=== PATIENT | female | born 1975 | race Caucasian/White ===

== ENCOUNTER 2021-02-28 20:44 | Emergency (ER) | payer BC ==
[~2021-02-28] VITALS: Ht 165.1 cm; Wt 102.6 kg
[~2021-02-28 20:44] MED LIST: ARMOUR THYROID30 MG PO; ASPIR-LOW81 MG PO; CELEXA20 MG PO; CIPRO500 MG PO; FAMOTIDINE10 MG PO; FLONASE ALLERG9.9 ML NS; IBUPROFEN800 MG PO; KLONOPIN0.5 MG PO; LOVASTATIN20 MG PO; NORCO 5-325 TA1 EACH PO; PERCOCET 5-3251 EACH PO; VITAMIN D5000 UNIT PO; VITAMIN D50000 UNI1 PO; ZYRTEC10 MG PO
--- OUTSIDE RECORDS SUMMARY | 2021-02-28 20:46 | XMS ---
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 ETameka VISIT COUNT (12 MO.) 1 CARMELO Dick TOTAL 1 NOTE: Visits indicate total known visits. ED/UCC VISIT TRACKING (12 MO.) 02/28/2021 20:45 CAR[facility]ELO [facility]ins [place] TYPE: Emergency COMPLAINT: - RT SIDED FLANK PAIN INPATIENT VISIT TRACKING (12 MO.) No inpatient visits to display in this time frame [email or web address]
== END 2021-02-28 23:39 | disposition home or self-care (01) ==
LOC: ED 20:44
DX: N83.201 Unspecified ovarian cyst, right side (principal); Z88.2 Allergy status to sulfonamides; Z88.8 Allergy status to other drugs, medicaments and biological substances; Z88.1 Allergy status to other antibiotic agents; Z91.048 Other nonmedicinal substance allergy status; Z79.899 Other long term (current) drug therapy
CPT/HCPCS: 74177; 80053; 81001; 84703; 85025; 99284-25; J1885

== ENCOUNTER 2021-06-29 22:51 | Emergency (ER) | payer BC ==
[~2021-06-29] VITALS: Ht 165.1 cm; Wt 99.8 kg
--- OUTSIDE RECORDS SUMMARY | 2021-06-29 22:54 | XMS ---
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 Terrance VISIT COUNT (12 MO.) 2 CARMELO Dick TOTAL 2 NOTE: Visits indicate total known visits. 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
[2021-06-29] MEDS ORDERED: MULTI VITAMIN1 EACH PO (23:12)
--- NOTE | 2021-06-30 18:54 | EKG ---
[facility] [address] [place], [place] [address] Signed Normal sinus rhythm Normal ECG No previous ECGs available Confirmed by BRIAN OSBORN DO ([id number]) on 06/30/2021 6:54:20 PM Electronically Signed By: BRIAN OSBORN DO 06/30/21 1854 PATIENT NAME: MARGUERITE WILKES Electrocardiogram DATE OF : 75 PHYSICIAN: BRIAN OSBORN DO REPORT #: [id number] REPORT IS CONFIDENTIAL AND NOT TO BE RELEASED WITHOUT AUTHORIZATION
== END 2021-06-30 00:39 | disposition home or self-care (01) ==
LOC: ED 22:51
DX: R00.2 Palpitations (principal); Z88.2 Allergy status to sulfonamides; Z91.048 Other nonmedicinal substance allergy status; Z88.1 Allergy status to other antibiotic agents; Z88.8 Allergy status to other drugs, medicaments and biological substances; Z79.899 Other long term (current) drug therapy
CPT/HCPCS: 36415; 80048; 83735; 84484; 85025; 93005; 93010; 96374; 99285-25; J2405

== ENCOUNTER 2021-07-07 12:50 | Day surgery (SDC) | payer BC ==
[~2021-07-07] VITALS: Ht 165.1 cm; Wt 101.0 kg
[~2021-07-07 12:50] MED LIST changes: +MULTI VITAMIN1 EACH PO
--- NOTE | 2021-07-07 12:53 | NUR ---
CONNECTED WITH PT BY PHONE. HAD PRAYER, GAVE ENCOURAGEMENT. HER MOTHER WILL BE WITH HER AND TAKE HER HOME FOLLOWING DC.
--- NOTE | 2021-07-07 14:30 | NUR ---
07/07/21 1430 Tamiko Ojeda 1425- PT ARRIVES TO PACU AWAKE AND TALKING. RESP EVEN AND UNLABORED. OXYGEN SAT HIGH 90'S TO 100% ON 3L VIA OXYMASK. PT REPORTS NO PAIN OR NAUSEA.
--- NOTE | 2021-07-08 12:18 | PATH ---
[facility] [address], [place] [address] Signed SPECIMEN(S): A CECUM BIOPSY SPECIMEN(S): B TERMINAL ILEUM BIOPSY SPECIMEN(S): C DESCENDING/LEFT COLON BIOPSY SPECIMEN(S): D SIGMOID BIOPSY SPECIMEN(S): E RECTAL BIOPSY SPECIMEN SOURCE: A. CECUM BIOPSY B. TERMINAL ILEUM BIOPSY C. DESCENDING/LEFT COLON BIOPSY D. SIGMOID BIOPSY E. RECTAL BIOPSY CLINICAL HISTORY: Colonoscopy. Chronic diarrhea. Hx: Cholecystectomy, gastric sleeve. FINAL PATHOLOGIC DIAGNOSIS: A. Colon, cecum, biopsy: - Colonic mucosa with no histopathologic abnormality. - Negative for active, chronic, or microscopic colitis. - Negative for dysplasia or malignancy. B. Colon, terminal ileum, biopsy: - Ileal mucosa with no histopathologic abnormality. - Negative for active inflammation or granulomas. - Negative for dysplasia or malignancy. C. Colon, descending/left, biopsy: - Colonic mucosa with no histopathologic abnormality. - Negative for active, chronic, or microscopic colitis. - Negative for dysplasia or malignancy. D. Colon, sigmoid, biopsy: - Colonic mucosa with no histopathologic abnormality. - Negative for active, chronic, or microscopic colitis. - Negative for dysplasia or malignancy. E. Rectum, biopsy: - Colorectal mucosa with no histopathologic abnormality. - Negative for active, chronic, or microscopic colitis. - Negative for dysplasia or malignancy. NAL:cml:C2NR MICROSCOPIC EXAMINATION: Histologic sections of all submitted blocks are examined by light microscopy. PATIENT NAME: MARGUERITE WILKES PATHOLOGY DATE OF : 75 REPORT #: [id number] PHYSICIAN: MARK MARTINEZ PCP: GODRY CARDONA REPORT IS CONFIDENTIAL AND NOT TO BE RELEASED WITHOUT AUTHORIZATION [facility] [address], [place] [address] Signed These findings, together with the gross examination, support the pathologic diagnosis. GROSS DESCRIPTION: Five specimens are received in five containers, labeled "KP." A. The specimen, labeled "KP, #1 cecal biopsy," is received in formalin and consists of two goldberg soft tissue fragments that measure 0.3 cm in greatest dimension. The specimen is entirely submitted in cassette (A1). B. The specimen, labeled "KP, #2 terminal ileum," is received in formalin and consists of one goldberg soft tissue fragment that measures 0.3 cm in greatest dimension. The specimen is entirely submitted in cassette (B1). C. The specimen, labeled "KP, #3 left colon," is received in formalin and consists of two goldberg soft tissue fragments that measure 0.3-0.5 cm in greatest dimension. The specimen is entirely submitted in cassette (C1). D. The specimen, labeled "KP, #4 sigmoid colon," is received in formalin and consists of two goldberg soft tissue fragments that measure 0.2-0.3 cm in greatest dimension. The specimen is entirely submitted in cassette (D1). E. The specimen, labeled "KP, #5 rectal," is received in formalin and consists of one goldberg soft tissue fragment that measures 0.4 cm in greatest dimension. The specimen is entirely submitted in cassette (E1). AT (under the direct supervision of a pathologist) The Gross Description was prepared using a voice recognition system. The report was reviewed for accuracy; however, sound-alike word errors, addition and/or deletions may occur. If there is any question about this report, please contact Client Services. PERFORMING LABORATORY: The technical component was performed by [facility], [address] [place] [id number] (Oilseed Meat Presser: Arpita Santoro MD; CLIA# [id number]). Professional interpretation was performed by [facility], [address] [facility] [address] [place], [place] [address] (CLIA# [id number]). Diagnostician: Mercedes German MD Pathologist Electronically Signed 07/08/2021 PATIENT NAME: MARGUERITE WILKES SELINA PATHOLOGY DATE OF : 75 REPORT #: [id number] PHYSICIAN: MARK PATHOLOGY PCP: GORDY CARDONA REPORT IS CONFIDENTIAL AND NOT TO BE RELEASED WITHOUT AUTHORIZATION [facility] [address], [place] [address] Signed Copies: ~ PATIENT NAME: MARGUERITE WILKES SELINA PATHOLOGY DATE OF : 75 REPORT #: [id number] PHYSICIAN: MARK MARTINEZ PCP: GORDY CARDONA REPORT IS CONFIDENTIAL AND NOT TO BE RELEASED WITHOUT AUTHORIZATION
--- NOTE | 2021-07-10 10:56 | OR ---
[facility] [address] [place], [place] [address] Signed DATE OF OPERATION: 07/07/2021 SURGEON: Jose Flores MD PREOPERATIVE DIAGNOSES: 1. Persistent diarrhea. 2. Distant history of sleeve gastrectomy in 2018. 3. History of cholecystectomy greater than 10 years ago. POSTOPERATIVE DIAGNOSIS: Normal-appearing colon and ilium except for diminutive polyp of the sigmoid. PROCEDURE: 1. Total colonoscopy to cecum with intubation of ileum and biopsies of ileum, cecum, left colon and rectum. 2. Cold morcellation excision of diminutive polyp of sigmoid. ANESTHESIA: Intravenous sedation; fentanyl 200 mcg and Versed 10 mg. INDICATION: This 45-year-old white woman is a patient of JAIRO Leon. She is the daughter of also patients of [facility]. The patient has had complaints of persistent diarrhea. A thorough evaluation as to infectious causes was undertaken by JAIRO Leon, showing no sign of infectious etiology to this. She is admitted at this time to undergo colonoscopy. She understands the risks of bleeding, infection, and perforation. FINDINGS: The prep was good. Complete colonoscopy was undertaken to the cecum and intubation and visualization of the terminal ilium undertaken as well. Biopsies were taken of the ileum, cecum, left colon, and rectum to rule out occult colitis but there was no evidence of colitis proper. She had no evidence of cancer. There was a diminutive polyp of the sigmoid, which was excised with cold morcellation technique. PROCEDURE: The patient was brought to the endoscopy suite and placed in the lateral decubitus position, given intravenous sedation to the point of slurred speech and nystagmus. Full cardiopulmonary monitoring was maintained. Additional sedation was given as needed throughout the procedure. Digital rectal examination was normal. Electronically Signed By: JOSE FLORES MD 07/10/21 1056 PATIENT NAME: MARGUERITE WILKES OPERATIVE REPORT DATE OF : 75 REPORT #: [id number] PHYSICIAN: JOSE FLORES MD PCP: GORDY CARDONA REPORT IS CONFIDENTIAL AND NOT TO BE RELEASED WITHOUT AUTHORIZATION [facility] [address] [place], [place] [address] Signed An Olympus video colonoscope was passed in the rectum and manipulated throughout the colon ultimately passing the scope to the area of the proximal right colon. Abdominal wall stabilization was required as well as other maneuvers to ultimately intubate the cecum itself, but it was accomplished without question. Biopsies were taken of the cecum, though it appeared normal. With various manipulations, the ileum could be identified more fully and visualized and passed only a short distance allowing for accurate biopsies of the terminal ileum. The ileum appeared normal and without signs of inflammation. The scope was withdrawn from that point and examination throughout showed no sign of abnormalities. Biopsies were taken in the left colon and the rectum to assess for microscopic colitis. Retroflexed view was normal. There was noted to be a diminutive polyp of the sigmoid which was affirmed by narrow band imaging and this small lesion was excised with cold morcellation technique. The scope was removed. The patient was taken to recovery room in good condition. CONCLUDING DIAGNOSES: 1. No clear abnormality to account for diarrhea. 2. Diminutive polyp of sigmoid. PLAN: Questran 4 g p.o. q.i.d. tapering to the lowest effective dose will be recommended. We did discuss that in the office, though I do not believe she initiated this approach. She has had cholecystectomy in the past and this may assist in symptom control pending pathology reports. She will return to see me in approximately 4 weeks. MD SAEID Mora/NATEL /[id number] cc: JAIRO Leon Electronically Signed By: JOSE FLORES MD 07/10/21 1056 PATIENT NAME: MARGUERITE WILKES OPERATIVE REPORT DATE OF : 75 REPORT #: [id number] PHYSICIAN: JOSE FLORES MD PCP: GORDY CARDONA REPORT IS CONFIDENTIAL AND NOT TO BE RELEASED WITHOUT AUTHORIZATION [facility] [address] [place] [address] Signed Copies: GORDY CARDONA ~ Electronically Signed By: JOSE FLORES MD 07/10/21 1056 PATIENT NAME: MARGUERITE WILKES OPERATIVE REPORT DATE OF : 75 REPORT #: [id number] PHYSICIAN: JOSE FLORES MD PCP: GORDY CARDONA REPORT IS CONFIDENTIAL AND NOT TO BE RELEASED WITHOUT AUTHORIZATION
== END 2021-07-07 15:09 | disposition home or self-care (01) ==
LOC: OPS 12:50 → DS 12:53 → OPS 14:00
PROVIDERS: ATTEND Surgery
PROC: 0DBN8ZX Excision of Sigmoid Colon, Via Natural or Artificial Opening Endoscopic, Diagnostic (ICD-10-PCS; principal; 2021-07-07 14:00)
DX: K63.5 Polyp of colon (principal); Z90.49 Acquired absence of other specified parts of digestive tract; Z90.3 Acquired absence of stomach [part of]; Z88.2 Allergy status to sulfonamides; Z88.8 Allergy status to other drugs, medicaments and biological substances
CPT/HCPCS: J2250; J3010; J7121

== ENCOUNTER 2021-09-25 09:38 | Emergency (ER) | payer BC ==
[~2021-09-25] VITALS: Ht 165.1 cm; Wt 105.2 kg
--- OUTSIDE RECORDS SUMMARY | 2021-09-25 09:40 | XMS ---
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 ETameka VISIT COUNT (12 MO.) 3 CARMELO Dick TOTAL 3 NOTE: Visits indicate total known visits. ED/UCC VISIT TRACKING (12 MO.) 09/25/2021 09:38 CAR[facility] [place] TYPE: Emergency COMPLAINT: - L FACE NUMBNESS,EAR PROBLEM 06/29/2021 22:51 CARMELO [facility]ins [place] TYPE: Emergency COMPLAINT: - CHEST PAIN DIAGNOSES: - Other [place] [facility] (current[facility] drug therapy - Allergy status to other antibiotic agents - Chest pain, unspecified - Other nonmedicinal substance allergy status - Palpitations - Allergy status to sulfonamides - Allergy status to other drugs, medicaments and biological substances 02/28/2021 20:45 CARMELO [facility]ins [place] TYPE: Emergency COMPLAINT: - RT SIDED FLANK PAIN DIAGNOSES: - Allergy status to sulfonamides - Right lower quadrant pain - Allergy status to other antibiotic agents - Other nonmedicinal substance allergy status - Allergy status to other drugs, medicaments and biological substances - Other [place] [facility] (current) drug therapy - Unspecified ovarian cyst, right side INPATIENT VISIT TRACKING (12 MO.) No inpatient visits to display in this time frame [email or web address]
== END 2021-09-25 10:22 | disposition home or self-care (01) ==
LOC: ED 09:38
DX: H69.92 Unspecified Eustachian tube disorder, left ear (principal); Z88.2 Allergy status to sulfonamides; Z88.8 Allergy status to other drugs, medicaments and biological substances; Z91.048 Other nonmedicinal substance allergy status; Z88.1 Allergy status to other antibiotic agents; Z79.899 Other long term (current) drug therapy
CPT/HCPCS: 99282

== ENCOUNTER 2022-06-21 15:29 | Emergency (ER) | payer BC ==
[~2022-06-21] VITALS: Ht 165.1 cm; Wt 112.1 kg
[~2022-06-21 15:29] MED LIST changes: +CARAFATE1 GM PO
--- OUTSIDE RECORDS SUMMARY | 2022-06-21 15:31 | XMS ---
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 Terrance VISIT COUNT (12 MO.) 4 [facility] TOTAL 4 NOTE: Visits indicate total known visits. 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 [place] TYPE: Emergency COMPLAINT: - CHEST PAIN DIAGNOSES: - Palpitations - Chest pain, unspecified - Other exterminator helper (current) drug therapy - Allergy status to sulfonamides - Other nonmedicinal substance allergy status - Allergy status to other antibiotic agents - Allergy status to other drugs, medicaments and biological substances INPATIENT VISIT TRACKING (12 MO.) No inpatient visits to display in this time frame [email or web address]
--- NOTE | 2022-06-22 20:44 | EKG ---
[facility] [address] [place] [address] Signed Normal sinus rhythm Normal ECG When compared with ECG of 25-MAY-2022 16:58, No significant change was found V5 artifact Confirmed by Saqib Obando MD () on 06/22/2022 8:44:30 PM Electronically Signed By: SAQIB OBANDO MD 06/22/222043 PATIENT NAME: MARGUERITE WILKES Electrocardiogram DATE OF : 75 PHYSICIAN: SAQIB OBANDO MD REPORT #: [id number] REPORT IS CONFIDENTIAL AND NOT TO BE RELEASED WITHOUT AUTHORIZATION
== END 2022-06-21 18:40 | disposition home or self-care (01) ==
LOC: ED 15:29
DX: K27.9 Peptic ulcer, site unspecified, unspecified as acute or chronic, without hemorrhage or perforation (principal); I48.91 Unspecified atrial fibrillation; Z88.2 Allergy status to sulfonamides; Z88.8 Allergy status to other drugs, medicaments and biological substances; Z91.048 Other nonmedicinal substance allergy status; Z88.1 Allergy status to other antibiotic agents; Z79.899 Other long term (current) drug therapy
CPT/HCPCS: 36415; 72070; 74022; 80053; 83690; 84484; 85025; 93005; 93010; 96374; 96375; 99285-25; J1170; J2405; J7030

== ENCOUNTER 2022-08-29 16:36 | Emergency (ER) | payer BC ==
[~2022-08-29] VITALS: Ht 165.1 cm; Wt 110.8 kg
[~2022-08-29 16:36] MED LIST changes: +SINGULAIR10 MG PO
--- OUTSIDE RECORDS SUMMARY | 2022-08-29 16:38 | XMS ---
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 ETameka VISIT COUNT (12 MO.) 4 CARMELO Dick TOTAL 4 NOTE: Visits indicate total known visits. ED/UCC VISIT TRACKING (12 MO.) 08/29/2022 16:36 [facility] [place] TYPE: Emergency COMPLAINT: - HEAD PAIN 06/21/2022 15:29 CARMELO [facility]ins [place] TYPE: Emergency COMPLAINT: - CHEST PAIN DIAGNOSES: - Other half-way (current) drug therapy - Unspecified atrial fibrillation - Peptic ulcer, site unspecified, unspecified as acute or chronic, without hemorrhage or perforation - Other nonmedicinal substance allergy status - Allergy status to other antibiotic agents - Allergy status to sulfonamides - Allergy status to other drugs, medicaments and biological substances - Epigastric pain 05/25/2022 16:06 CARMELO [facility]ins [place] TYPE: Emergency COMPLAINT: - ABDOMINAL PAIN DIAGNOSES: - Right upper quadrant pain - Other nonmedicinal substance allergy status - Allergy status to other antibiotic agents - Palpitations - Other half-way (current) drug therapy - Allergy status to other drugs, medicaments and biological substances - Allergy status to sulfonamides 09/25/2021 09:[address] 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
[2022-08-29] MEDS ORDERED: IMITREX50 MG PO (20:48)
[2022-08-29 21:44] VITALS: BP 99/63
--- NOTE | 2022-08-30 16:26 | EKG ---
[facility] [address] [facility] [place], [place] [address] Signed Normal sinus rhythm Normal ECG When compared with ECG of 21-JUN-2022 15:36, No significant change was found Confirmed by ANNELIESE PARKER MD ([id number]) on 08/30/2022 4:26:36 PM Electronically Signed By: ANNELIESE PARKER MD 08/30/22 1626 PATIENT NAME: MARGUERITE WILKES Electrocardiogram DATE OF : 75 PHYSICIAN: ANNELIESE PARKER MD REPORT #: [id number] REPORT IS CONFIDENTIAL AND NOT TO BE RELEASED WITHOUT AUTHORIZATION
== END 2022-08-29 21:45 | disposition home or self-care (01) ==
LOC: ED 16:36
DX: R51.9 Headache, unspecified (principal); R20.0 Anesthesia of skin; Z88.1 Allergy status to other antibiotic agents; Z88.2 Allergy status to sulfonamides; Z88.8 Allergy status to other drugs, medicaments and biological substances; Z91.048 Other nonmedicinal substance allergy status; Z79.899 Other long term (current) drug therapy
CPT/HCPCS: 36415; 70450; 70496; 70498; 71045; 80053; 84484; 85025; 85610; 85730; 93005; 93010; 99284-25; A9270; J1790; J1885; J2405; J3030; J7040; Q9967

== ENCOUNTER 2023-04-16 05:47 | Day surgery (SDC) | payer BC ==
[2023-04-09 10:28] VITALS: BP 111/87
[~2023-04-16] VITALS: Ht 165.1 cm; Wt 106.8 kg
--- NOTE | ~2023-04-16 | OR ---
[place] [id number] [place], [place] [address] Draft DATE OF OPERATION: 04/16/2023 SURGEON: Maria Esther Varghese MD PREOPERATIVE DIAGNOSES: 1. Mixed urinary incontinence. 2. Overactive bladder. 3. Interstitial cystitis. POSTOPERATIVE DIAGNOSES: 1. Mixed urinary incontinence. 2. Overactive bladder. 3. Interstitial cystitis. NAMES OF PROCEDURES: 1. Diagnostic cystoscopy. 2. Urethral dilation, from 10-Burkinan to 24-Burkinan. 3. Botox bladder injection, 100 units. ANESTHESIA: MAC. ESTIMATED BLOOD LOSS: None. COMPLICATIONS: None. SPECIMENS: None. DRAINS: None. INDICATIONS FOR PROCEDURE: Ms. Boogie is a very pleasant 47-year-old female with a history of long-standing interstitial cystourethritis, who recently presented to me for evaluation and treatment of mixed urinary incontinence symptoms. After undergoing diagnostic cystoscopy, I discussed the various treatment options with her for her urinary incontinence. She does have a stress incontinence component. However, I recommended against placement of a PATIENT NAME: MARGUERITE BOOGIE OPERATIVE REPORT DATE OF : 75 REPORT #: [id number] PHYSICIAN: MARIA ESTHER VARGHESE MD PCP: GORDY CARDONA REPORT IS CONFIDENTIAL AND NOT TO BE RELEASED WITHOUT AUTHORIZATION [address] [address] Draft midurethral sling as this would likely make her cystitis and OAB symptoms worse. She has elected to give Botox injection a try. If the Botox is effective, she will consider also trying Bulkamid injection for her JEREMY symptoms. After discussion of the risks and benefits of botulinum toxin injections today including the risk of recurrent UTI and urinary retention, she has agreed to proceed. OPERATIVE FINDINGS: 1. The patient's urethra was dilated from 10-Burkinan to 24-Burkinan using straight sounds in order to make passage of the rigid cystoscope easier given her history of cystourethritis. 2. Diagnostic cystoscopy reveals no evidence of any suspicious masses, lesions, or stones. Bilateral ureteral orifices are in their normal anatomic location. She does have superficial bladder wall erythema and vascular dilation of the blood vessels within the bladder wall that is consistent with a cystitis picture. 3. 100 units of botulinum toxin was injected into the patient's bladder today via a total of five injections. The number of injections was minimized to prevent the patient's discomfort today. The injections themselves were performed without difficulty. DESCRIPTION OF PROCEDURE: After informed consent was obtained, the patient was taken back to the operating room. She was transferred from the [facility] to the operating room table, where MAC anesthesia was induced. She was placed in the dorsal lithotomy position and her genitalia were prepped and draped in a standard sterile fashion. Her urethra was dilated gently using straight sounds from 10-Burkinan to 24-Burkinan. I then passed a rigid cystoscope into the patient's bladder via a 22.5-Burkinan sheath. Diagnostic cystoscopy was performed. Please see the above findings. I then advanced the [employer] needle through the scope and the needle had already been primed with the botulinum toxin medication. I then placed a total of five injections throughout the bladder wall, avoiding the dome and trigone area of the bladder. All 100 units of the botulinum toxin was injected into the bladder wall today. Once the injections were complete, I withdrew the needle from the patient's bladder. I drained the patient's bladder and removed the cystoscope. Of note, the injections were made using a 3 mm length needle. The procedure was then terminated. The patient tolerated the procedure well without any complication. She will now be transferred to the postanesthesia care unit in stable condition. DISPOSITION: I discussed the details of today's procedure with the patient's mother and answered all of her questions. She will be sent home today when she awakes from her anesthesia. She must void on her own prior to discharge. She was given Cipro 500 mg one tablet p.o. b.i.d. for a total of five days along with Pyridium as needed for dysuria. The patient was also given a small amount of oxycodone 5 mg one tablet p.o. q.6 hours p.r.n. pain, PATIENT NAME: MARGUERITE BOOGIE OPERATIVE REPORT DATE OF : 75 REPORT #: [id number] PHYSICIAN: MARIA ESTHER VARGHESE MD PCP: GORDY CARDONA REPORT IS CONFIDENTIAL AND NOT TO BE RELEASED WITHOUT AUTHORIZATION [address] [address] Draft dispense #10 to be used in case her postoperative pain is severe, given her history of interstitial cystitis. She will be scheduled to return to clinic in 2 to 3 weeks for a nurse visit to have her urine and postvoid residual checked. MD FORTINO Lawson/RAJEEV /[id number] Copies: ~ PATIENT NAME: MARGUERITE BOOGIE OPERATIVE REPORT DATE OF : 75 REPORT #: [id number] PHYSICIAN: MARIA ESTHER VARGHESE MD PCP: GORDY CARDONA REPORT IS CONFIDENTIAL AND NOT TO BE RELEASED WITHOUT AUTHORIZATION
[~2023-04-16 05:47] MED LIST changes: +ACETAZOLAMIDE125 MG PO; +IMITREX50 MG PO
[2023-04-16 06:05] VITALS: BP 120/83
--- NOTE | 2023-04-16 08:26 | NUR ---
04/16/23 0826 Loly Rodriguez 0811- PT ARRIVES TO PACU, SEMI KATZ POSITION. REACTIVE TO STIMULUS BUT NOT ANSWERING QUESTIONS AT THIS TIME. LR INFUSING TO RH IV, O2 AT 6L PER MASK. ALL MONITORS IN PLACE. ABD SOFT, NON DISTENDED. WILL CONTINUE TO MONITOR. 0818- PT MOVED TO ROOM AIR AT THIS TIME, RESPONDS TO VERBAL STIMULI. DENIES PAIN OR NAUSEA AT THIS TIME. PT KEEPS EYES CLOSED. 0825- PT REPORTS FEELING LIKE SHE NEEDS TO URINATE. DOESN'T WANT A BED SILVA AT THIS TIME. WILL NOTIFY IF SHE CHANGES HER MIND. WARM BLANKETS PROVIDED. NO SIGNS OF DISTRESS.
[2023-04-16 08:35] VITALS: BP 107/73
--- NOTE | 2023-04-16 09:01 | NUR ---
0835: PT ARRIVES TO UNIT VIA STRETCHER. AWAKE AND ALERT ON ARRIVAL. DROWSY WHEN NOT STIMULATED. VSS, RESP EVEN AND UNLABORED. PT DENIES PAIN AND NAUSEA. REPORTS URGE TO VOID. DANGLES AT THE BEDSIDE, IDANIA WELL. AMBULATES TO BR WITH STANDBY FROM RN. STEADY GAIT. FIRST SUCCESSFUL POSTOP VOID, 150MLS. BACK TO STRETCHER. IV CONVERTED TO SL AND SCDS IN PLACE. ICE WATER AND CRACKERS PROVIDED. PT COMFORTABLE WITHOUT NEEDS. MOTHER ATTENTIVE AT THE BEDSIDE. CALL LIGHT WITHIN REACH
[2023-04-16 09:35] VITALS: BP 100/73
--- NOTE | 2023-04-16 09:45 | NUR ---
0935: PT AWAKE AND ALERT IN STRETCHER. REPORTS DESIRE TO DC. VSS, RESP EVEN AND UNLABORED. DENIES PAIN AND NAUSEA. IDANIA PO INTAKE. SL REMOVED WITH CATH TIP INTACT AND PRESSURE APPLIED TO SITE, WNL. PT TO DRESS INDEPENDENTLY AND PREPARE FOR DC. NO NEEDS, CALL LIGHT WITHIN REACH
--- NOTE | 2023-04-16 10:28 | NUR ---
0950: PT DRESSED AND READY FOR DC. INSTRUCTIONS PROVIDED ORDERED AND PT VOICES UNDERSTANDING AND DENIES QUESTIONS AND CONCERNS AT THIS TIME. WHEELED OFF OF UNIT BY THIS RN. TRANSFERS INTO VEHICLE INDEPENDENTLY AND APPROPRIATELY. NO PHYSICAL S/S OF DISTRESS AT THIS TIME
== END 2023-04-16 09:50 | disposition home or self-care (01) ==
LOC: DS 05:47 → OPS 05:47 → DS 07:30 → OPS 07:30 → DS 08:00 → OPS 09:50
PROVIDERS: ATTEND Urology
PROC: 3E0K8GC Introduction of Other Therapeutic Substance into Genitourinary Tract, Via Natural or Artificial Opening Endoscopic (ICD-10-PCS; principal; 2023-04-16 07:30)
DX: N30.20 Other chronic cystitis without hematuria (principal); N39.46 Mixed incontinence; N32.81 Overactive bladder; F32.A Depression, unspecified; E03.9 Hypothyroidism, unspecified; E78.5 Hyperlipidemia, unspecified; I48.0 Paroxysmal atrial fibrillation
CPT/HCPCS: J0131; J0585; J0690; J1100; J2001; J2250; J2405; J2704; J3010; J7121

== ENCOUNTER 2024-04-29 08:30 | Day surgery (SDC) | payer BC ==
[2024-04-28 09:52] VITALS: BP 114/79
[~2024-04-29] VITALS: Ht 165.1 cm; Wt 106.8 kg
--- NOTE | ~2024-04-29 | OR ---
[facility] [address] [place], [place] [address] Draft DATE OF OPERATION: 04/29/2024 SURGEON: Jose Flores MD PREOPERATIVE DIAGNOSIS: Family history of colon cancer (mother age 70). POSTOPERATIVE DIAGNOSIS: Small polyps x2, probably hyperplastic. PROCEDURE: Total colonoscopy to cecum with cold morcellation polypectomy x2. ANESTHESIA: Intravenous sedation; propofol, Marcos Driscoll CRNA. INDICATIONS: 48-year-old white woman is a patient of JAIRO Leon. She underwent colonoscopy by me nearly three years ago in June 2021. Findings at that time showed diminutive polyp of the sigmoid. The patient's mother was recently diagnosed with colon cancer at age 70. On that basis, she has concerns and wished to have colon evaluation once again. She does have diarrhea alternating with constipation. She has had no blood per rectum. Constipation has been well managed by use of milk of magnesia. She also takes a probiotic. She has other medical issues including history of gastric sleeve resection, heart ablation for atrial fibrillation, cholecystectomy, hysterectomy and history of surgery for endometriosis. She is now to undergo colonoscopy on the basis of her family history. She understands the risk of bleeding, infection, and perforation. FINDINGS: The prep was excellent. Complete colonoscopy was undertaken to the cecum without question. Full intubation of the cecum was noted. She had two small polyps, one in the sigmoid and one in the rectosigmoid. Both were probably hyperplastic based on their appearance. There were no other findings of note. DESCRIPTION OF PROCEDURE: The patient was brought to the surgical endoscopy suite, given intravenous sedation to the point of slurred speech and nystagmus with full cardiopulmonary monitoring using a propofol technique by the personal companion. A digital rectal examination was normal. An PATIENT NAME: MARGUERITE WILKES OPERATIVE REPORT DATE OF : 75 REPORT #: [id number] PHYSICIAN: JOSE FLORES MD PCP: GORDY CARDONA REPORT IS CONFIDENTIAL AND NOT TO BE RELEASED WITHOUT AUTHORIZATION [facility] [address] [place], [place] [address] Draft Olympus video colonoscope was passed in the rectum and manipulated throughout the colon ultimately intubating the cecum itself. The ileocecal valve and appendiceal orifice were well identified. The scope was then withdrawn and examination throughout undertaken showing no sign of abnormality until the sigmoid where a small whitish probably hyperplastic polyp was noted. This was excised with cold morcellation technique completely. Further withdrawal showed another similar such lesion at the rectosigmoid that was also excised with cold morcellation technique. Retroflexed view of the rectum was normal. Scope was straightened, withdrawn and removed. The patient was taken to the recovery room in good condition. CONCLUDING DIAGNOSIS: Polyps x2, probably hyperplastic. PLAN: Recommend repeat colonoscopy in 5 years based on her personal history and newly revealed family history of colon cancer in her mother. MD SAEID Mora/RAJEEV /[id number] cc: JAIRO Leon Copies: GORDY CARDONA ~ PATIENT NAME: CHUNGMARGUERITE SELINA OPERATIVE REPORT DATE OF : 75 REPORT #: [id number] PHYSICIAN: JOSE FLORES MD PCP: GORDY CARDONA REPORT IS CONFIDENTIAL AND NOT TO BE RELEASED WITHOUT AUTHORIZATION
[~2024-04-29 08:30] MED LIST changes: +ARMOUR THYROID90 MG PO; +IBLOOD GLUCOSE TEST STRIP 1 EA TEST VI PRN; +LACTATED RINGER'S 1,000 ML IV SCH; +LIDOCAINE HCL 1% 5 ML SDV INJ ONE; +NP THYROID15 MG PO; +NP THYROID60 MG PO; +PRILOSEC OTC20 MG PO; +TOPIRAMATE100 MG PO; +VITAMIN D21250 MCG PO
[2024-04-29 09:57] VITALS: BP 110/68
[2024-04-29] MEDS ORDERED: LIDOCAINE HCL 2% 5 ML SDV ONE (10:32)
[2024-04-29] MEDS ORDERED: propofoL 200 MG/20 ML VIAL ONE (10:32)
[2024-04-29 12:03] VITALS: BP 109/70
--- NOTE | 2024-04-29 12:29 | NUR ---
04/29/24 1229 Brittanie Sandra 1141 PT ARRIVED IN PACU SLEEPY. ABD SOFT AND PASSING FLATUS. 1150 DR AT BEDSIDE. ALL QUESTIONS ANSWERED. 1200 UP TO BR. VOIDED. BACK AT BEDSIDE GETTTING DRESSED. 1215 DC INSTRUCTIONS GIVEN. LEFT VIA W/C.
--- NOTE | 2024-05-01 11:20 | PATH ---
[facility] [address] [facility] [place], [place] [address] Signed SPECIMEN(S): A SIGMOID POLYP SPECIMEN(S): B SIGMOID POLYP #2 SPECIMEN SOURCE: A. SIGMOID POLYP B. SIGMOID POLYP #2 CLINICAL HISTORY: history of polyps, family history of colon CA. Post: Polyp x 2 FINAL PATHOLOGIC DIAGNOSIS: A. Colon, sigmoid, polypectomy: - Hyperplastic polyp B. Colon, sigmoid, polypectomy #2: - Hyperplastic polyp BRP MICROSCOPIC EXAMINATION: Histologic sections of all submitted blocks are examined by light microscopy. These findings, together with the gross examination, support the pathologic diagnosis. GROSS DESCRIPTION: A. The specimen, labeled and designated "Keagan, Willy, sigmoid polyp," is received in formalin and consists of five goldberg soft tissue fragments, ranging from 0.1-0.3 cm. Entirely submitted in (A1). B. The specimen, labeled and designated "Keagan, Willy, sigmoid polyp #2," is received in formalin and consists of three goldberg soft tissue fragments, ranging from 0.2-0.3 cm. Entirely submitted in (B1). AB (under the direct supervision of a pathologist) The Gross Description was prepared using a voice recognition system. The report was reviewed for accuracy; however, sound-alike word errors, addition and/or deletions may occur. If there is any question about this report, please contact Client Services. ADDITIONAL NOTES: Immunohistochemical and/or in situ hybridization studies if performed in this case included appropriate positive controls that reacted as expected. This test was developed and its performance characteristics determined by [facility]. It has not been cleared or approved by the U.S. Food and Drug Administration. The FDA has determined that PATIENT NAME: MARGUERITE WILKES PATHOLOGY DATE OF : 75 REPORT #: [id number] PHYSICIAN: MARK PATHOLOGY PCP: GORDY CARDONA REPORT IS CONFIDENTIAL AND NOT TO BE RELEASED WITHOUT AUTHORIZATION [facility] [address] [place], [place] [address] Signed such clearance or approval is not necessary. This test is used for clinical purposes. It should not be regarded as investigational or for research. [facility] is certified under the Clinical Laboratory Improvement Amendments of 1988 (CLIA) as qualified to perform high complexity clinical laboratory testing. PERFORMING LABORATORY: Technical component was performed by [facility], [address] [place] [id number] (CLIA# [id number]). [facility] - [facility], [address] [address] (CLIA# [id number]). Diagnostician: Xavier Lira MD Pathologist Electronically Signed 05/01/2024 Copies: ~ PATIENT NAME: MARGUERITE WILKES PATHOLOGY DATE OF : 75 REPORT #: [id number] PHYSICIAN: MARK PATHOLOGY PCP: GORDY CARDONA REPORT IS CONFIDENTIAL AND NOT TO BE RELEASED WITHOUT AUTHORIZATION
== END 2024-04-29 12:15 | disposition home or self-care (01) ==
LOC: DS 08:30
PROVIDERS: ATTEND Surgery
PROC: 0DBN8ZZ Excision of Sigmoid Colon, Via Natural or Artificial Opening Endoscopic (ICD-10-PCS; principal; 2024-04-29 10:40)
DX: R19.4 Change in bowel habit (principal); K63.5 Polyp of colon; I48.91 Unspecified atrial fibrillation; E03.9 Hypothyroidism, unspecified; K21.9 Gastro-esophageal reflux disease without esophagitis; Z86.0100 Personal history of colon polyps, unspecified; Z79.890 Hormone replacement therapy; Z79.899 Other long term (current) drug therapy; Z88.2 Allergy status to sulfonamides; Z88.1 Allergy status to other antibiotic agents; Z88.8 Allergy status to other drugs, medicaments and biological substances; Z98.84 Bariatric surgery status; Z90.49 Acquired absence of other specified parts of digestive tract; Z90.710 Acquired absence of both cervix and uterus; Z80.0 Family history of malignant neoplasm of digestive organs
CPT/HCPCS: 00811; J2003; J2704; J7121

== ENCOUNTER 2024-05-05 05:54 | Day surgery (SDC) | payer BC ==
[2024-04-28 10:11] VITALS: BP 114/79
[~2024-05-05] VITALS: Ht 165.1 cm; Wt 106.8 kg
[~2024-05-05 05:54] MED LIST changes: -IBLOOD GLUCOSE TEST STRIP 1 EA TEST VI PRN; -LIDOCAINE HCL 1% 5 ML SDV INJ ONE
[2024-05-05 06:08] VITALS: BP 1115/77
[2024-05-05] MEDS ORDERED: LIDOCAINE HCL 1% 5 ML SDV INJ ONE (07:00)
[2024-05-05] MEDS ORDERED: IBLOOD GLUCOSE TEST STRIP 1 EA TEST VI PRN ×2 (07:00→08:15)
[2024-05-05] MEDS ORDERED: CEFAZOLIN SODIUM 2 GM/20 ML SYR IV SCH (07:00)
[2024-05-05] MEDS ORDERED: BOTULINUM TOXIN TYPE A 100 UNITS VIAL IM ONE (07:15)
[2024-05-05] MEDS ORDERED: fentaNYL citrate 100 MCG/2 ML VIAL ONE (07:24)
[2024-05-05] MEDS ORDERED: LIDOCAINE HCL 2% 5 ML SDV ONE (07:24)
[2024-05-05] MEDS ORDERED: KETOROLAC TROMETHAMINE 30 MG/ML VIAL ONE (07:24)
[2024-05-05] MEDS ORDERED: propofoL 200 MG/20 ML VIAL ONE ×3 (07:24→08:26)
[2024-05-05] MEDS ORDERED: DEXAMETHASONE SOD PHOS 4 MG/ML VIAL ONE (07:24)
[2024-05-05] MEDS ORDERED: ACETAMINOPHEN 1,000 MG/100 ML VIAL ONE (07:24)
[2024-05-05] MEDS ORDERED: ondansetron HCL 4 MG/2 ML VIAL ONE (07:24)
--- NOTE | 2024-05-05 07:43 | NUR ---
VISITED DURING SPIRITUAL CARE ROUNDS. PT SUPPORTED BY FAMILY MEMBER IN ROOM. NO IMMEDIATE NEEDS. ACCOUNTING SYSTEMS MANAGER PROVIDED SUPPORTIVE PRESENCE, HOSPITALITY, PRAYER, FACILIATED INTERACTION WITH THERAPY ANIMAL. PT AND FAMILY EXPRESSED GRATITUDE.
[2024-05-05] MEDS ORDERED: KETOROLAC TROMETHAMINE 15 MG/ML VIAL IV PRN (07:45)
[2024-05-05] MEDS ORDERED: HYDROmorphone HCL 1 MG/ML SYR IV PRN (07:45)
[2024-05-05] MEDS ORDERED: TRAMADOL HCL 50 MG TAB PO PRN (07:45)
[2024-05-05] MEDS ORDERED: ondansetron HCL 4 MG/2 ML VIAL IV PRN ×2 (07:45→08:15)
[2024-05-05] MEDS ORDERED: OXYCODONE/APAP 5/325 TAB PO PRN (07:45)
[2024-05-05] MEDS ORDERED: fentaNYL citrate 50 MCG/ML SDV IV PRN (08:15)
[2024-05-05] MEDS ORDERED: droPERidol 5 MG/2 ML VIAL IV PRN (08:15)
[2024-05-05] MEDS ORDERED: NALOXONE HCL 0.4 MG SYR IV PRN (08:15)
[2024-05-05] MEDS ORDERED: PROCHLORPERAZINE EDISYLATE 10 MG/2 ML VIAL IV PRN (08:15)
[2024-05-05 09:57] VITALS: BP 114/77
--- NOTE | 2024-05-05 10:00 | NUR ---
PATIENT RETURNS TO TREATMENT ROOM FROM PACU. PATIENT RETURNS DUE TO NOT BEING ABLE TO URINATE. REPORT TAKEN FROM HARPAL WATSON. SHE STATES THAT SHE FEELS THE URGE, BUT UNABLE TO START A STREAM. SHE DENIES ANY NAUSEA. REPORTS SOME CRAMPING TO HER ABDOMEN BUT OTHERWISE FEELS WELL, JUST DROWSY. VITAL SIGNS OBTAINED AND WDL. I ASKED PATIENT IF SHE WOULD LIKE TO TRY AND URINATE AGAIN AND SHE SAID SHE WOULD. PATIENT AMBULATED TO RESTROOM WITH ASSISTANCE.
--- NOTE | 2024-05-05 10:01 | NUR ---
[facility]IV[facility] IN PACU SLEEPY WITH NO C/O'S. 15 RESTING. REU. 929 C/O URGE TO VOID. UP TO BATHROOM WITH ONE PERSON ASSIST. 944 UNABLE TO VOID. BACK IN BED WITH WARM BLANKETS. 954 TO DS UNTIL DC CRITERIA MET. REPORT GIVEN TO RN. FAMILY AT BEDSIDE.
--- NOTE | 2024-05-05 10:05 | NUR ---
PATIENT ABLE TO URINATE APPROXIMATELY 125ML. SHE WAS ALLOWED TO GET DRESSED AT THIS TIME.
--- NOTE | 2024-05-05 10:15 | NUR ---
DISCHARGE INSTRUCTIONS REVIEWED IN DETAIL WITH PATIENT AND HER AUNT PRESENT. ALL QUESTIONS ANSWERED. PATIENT DICHARGED VIA WHEELCHAIR WHERE HER AUNT JOB IS TO TAKE HER HOME.
--- NOTE | 2024-05-07 14:03 | EKG ---
[facility] [address] [facility] [place] [address] Signed Normal sinus rhythm Cannot rule out Anterior infarct , age undetermined Abnormal ECG When compared with ECG of 08-MAY-2023 16:47, No significant change was found Confirmed by Mejia Jeter MD ([id number]) on 05/07/2024 2:03:23 PM Electronically Signed By: MEJIA JETER DO 05/07/24 140 PATIENT NAME: MARGUERITE WILKES Electrocardiogram DATE OF : 75 PHYSICIAN: MEJIA JETER DO REPORT #: [id number] REPORT IS CONFIDENTIAL AND NOT TO BE RELEASED WITHOUT AUTHORIZATION
== END 2024-05-05 10:20 | disposition home or self-care (01) ==
LOC: DS 05:54
PROVIDERS: ATTEND Urology
PROC: 0T7D8ZZ Dilation of Urethra, Via Natural or Artificial Opening Endoscopic (ICD-10-PCS; principal; 2024-05-05 07:30)
PROC: 3E0K8GC Introduction of Other Therapeutic Substance into Genitourinary Tract, Via Natural or Artificial Opening Endoscopic (ICD-10-PCS; 2024-05-05 07:30)
DX: N39.46 Mixed incontinence (principal); N36.42 Intrinsic sphincter deficiency (ISD); N32.81 Overactive bladder; I48.0 Paroxysmal atrial fibrillation; J45.20 Mild intermittent asthma, uncomplicated; E78.00 Pure hypercholesterolemia, unspecified; Z79.899 Other long term (current) drug therapy; Z88.2 Allergy status to sulfonamides; Z88.1 Allergy status to other antibiotic agents; Z88.8 Allergy status to other drugs, medicaments and biological substances; Z91.048 Other nonmedicinal substance allergy status; Z90.710 Acquired absence of both cervix and uterus
CPT/HCPCS: 00910; 93005; 93010; J0131; J0585; J0690; J1100; J1885; J2003; J2405; J2704; J3010; J7121; L8606

== ENCOUNTER 2024-07-16 17:29 | Emergency (ER) | payer BC ==
[~2024-07-16] VITALS: Ht 165.1 cm; Wt 104.3 kg
[~2024-07-16 17:29] MED LIST changes: -LACTATED RINGER'S 1,000 ML IV SCH
[2024-07-16] MEDS ORDERED: ondansetron HCL 4 MG/2 ML VIAL IV ONE (19:30)
[2024-07-16] MEDS ORDERED: SODIUM CHLORIDE 0.9% 1,000 ML IV ONE (19:30)
[2024-07-16] MEDS ORDERED: MORPHINE SULFATE 4 MG/ML VIAL IV ONE (19:30)
[2024-07-16 19:36] LABS: BILIRUBIN, URINE NEGATIVE (negative); BLOOD/HGB, URINE NEGATIVE (Negative); KETONE, URINE NEGATIVE (Negative); LEUK ESTERASE, URINE NEGATIVE (negative); NITRITE, URINE NEGATIVE (negative); PH, URINE 5.5 (5-7)
[2024-07-16 19:55] LABS: BASOPHILS 1.1 % (0-2); EOSINOPHILS 1.4 % (0-6); HEMATOCRIT 40.1 % (35.0-50.0); HEMOGLOBIN 13.5 g/dL (12.0-18.0); LYMPHOCYTES 34.7 % (24-44); MCH 28.6 (27-36); MCHC 33.7 g/dl (30-36); MCV 84.7 fl (81-99); MONOCYTES 6.8 % (0-12); PLATELET COUNT 183 K/uL (140-440); RBC 4.73 M/ul (4.3-5.7); RDW 14.6 (10.5-15.0)
[2024-07-16 20:11] LABS: ALBUMIN 3.9 g/dL (3.4-5.0); ALBUMIN/GLOBULIN RATIO 1.22 (1.1-2.4); ANION GAP 11.5 (7-21); BILIRUBIN, TOTAL 0.3 mg/dL (0.2-1.0); CALCIUM 9.6 mg/dL (8.5-10.1); POTASSIUM 3.5 mmol/L (3.5-5.1); PROTEIN, TOTAL 7.1 g/dL (6.4-8.2)
[2024-07-16 20:24] LABS: CORONAVIRUS COVID-19 AG NEGATIVE (NEGATIVE); INFLUENZA A AG NEGATIVE (NEGATIVE); INFLUENZA B AG NEGATIVE (NEGATIVE)
[2024-07-16] MEDS ORDERED: KETOROLAC TROMETHAMINE 30 MG/ML VIAL IV ONE (21:15)
[2024-07-16] MEDS ORDERED: ONDANSETRON ODT8 MG PO (22:20)
[2024-07-16] MEDS ORDERED: LOMOTIL TABLET1 EACH PO (22:20)
[2024-07-16] MEDS ORDERED: HYDROCODON-ACE1 EA10 PO (22:21)
[2024-07-16] MEDS ORDERED: PROCHLORPERAZINE EDISYLATE 10 MG/2 ML VIAL IV ONE (22:30)
[2024-07-16] MEDS ORDERED: ONDANSETRON 4 MG HOME.PACK SL ONE (22:30)
[2024-07-16] MEDS ORDERED: HYDROCODONE BIT/ACETAMINOPHEN 5/325 MG 1 TAB HOME.PACK PO ONE (22:30)
[2024-07-16 22:46] VITALS: BP 103/73
--- NOTE | 2024-07-18 12:56 | EKG ---
[facility] [address] [facility] [place] [address] Signed Normal sinus rhythm Nonspecific ST abnormality Prolonged QT Abnormal ECG When compared with ECG of 05-MAY-2024 06:08, No significant change was found Confirmed by Donovan Jeter DO ([id number]) on 07/18/2024 12:55:54 PM Electronically Signed By: DONOVAN JETER DO 07/18/24 1256 PATIENT NAME: CHUNGMARGUERITERENEE MARKS Electrocardiogram DATE OF : 75 PHYSICIAN: DONOVAN JETER DO REPORT #: [id number] REPORT IS CONFIDENTIAL AND NOT TO BE RELEASED WITHOUT AUTHORIZATION
== END 2024-07-16 23:04 | disposition home or self-care (01) ==
LOC: ED 17:29
PROVIDERS: Family Medicine
DX: R10.31 Right lower quadrant pain (principal); I48.91 Unspecified atrial fibrillation; Z88.8 Allergy status to other drugs, medicaments and biological substances; Z88.2 Allergy status to sulfonamides; Z91.048 Other nonmedicinal substance allergy status; Z88.1 Allergy status to other antibiotic agents; Z88.5 Allergy status to narcotic agent; Z79.899 Other long term (current) drug therapy
CPT/HCPCS: 36415; 74177; 76830; 76856; 80053; 81003; 83690; 84484; 84703; 85025; 93005; 93010; 96375; 99284-25; A9270; J1885; J2270; J2405; J7030; Q9967

== ENCOUNTER 2024-07-31 20:05 | Emergency (ER) | payer BC ==
[~2024-07-31] VITALS: Ht 165.1 cm; Wt 105.0 kg
[~2024-07-31 20:05] MED LIST changes: +HYDROCODON-ACE1 EA10 PO; +LOMOTIL TABLET1 EACH PO; +ONDANSETRON ODT8 MG PO
--- OUTSIDE RECORDS SUMMARY | 2024-07-31 20:11 | XMS ---
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 [place] VISIT COUNT (12 MO.) 2 [facility] TOTAL 2 NOTE: Visits indicate total known visits. ED/UCC VISIT TRACKING (12 MO.) 07/31/2024 20:05 [facility] [place] TYPE: Emergency COMPLAINT: - ABDOMINAL PAIN 07/16/2024 17:29 [facility] [place] TYPE: Emergency COMPLAINT: - ABDOMINAL PAIN DIAGNOSES: - Allergy status to narcotic agent - Allergy status to other antibiotic agents - Allergy status to other drugs, medicaments and biological substances - Allergy status to sulfonamides - Other custodial (current) drug therapy - Other nonmedicinal substance allergy status - Right lower quadrant pain - Unspecified atrial fibrillation INPATIENT VISIT TRACKING (12 MO.) No inpatient visits to display in this time frame [email or web address]
[2024-07-31] MEDS ORDERED: SODIUM CHLORIDE 0.9% 1,000 ML IV ONE (21:15)
[2024-07-31] MEDS ORDERED: fentaNYL citrate 100 MCG/2 ML VIAL IV ONE (21:15)
[2024-07-31] MEDS ORDERED: ondansetron HCL 4 MG/2 ML VIAL IV ONE (21:15)
[2024-07-31 21:19] LABS: BASOPHILS 1.5 % (0-2); EOSINOPHILS 1.6 % (0-6); HEMATOCRIT 39.4 % (35.0-50.0); HEMOGLOBIN 13.6 g/dL (12.0-18.0); LYMPHOCYTES 46.9 % (24-44); MCH 28.6 (27-36); MCHC 34.4 g/dl (30-36); MCV 83.1 fl (81-99); MONOCYTES 7.2 % (0-12); NEUTROPHILS 42.8 % (39-80); PLATELET COUNT 192 K/uL (140-440); RBC 4.74 M/ul (4.3-5.7); RDW 14.6 (10.5-15.0)
[2024-07-31 21:31] LABS: ALBUMIN/GLOBULIN RATIO 1.25 (1.1-2.4); ALKALINE PHOSPHATASE 83 U/L (46-116); ALT (SGPT) 25 U/L (14-59); ANION GAP 18.3 (7-21); AST (SGOT) 14 U/L (15-37); BILIRUBIN, TOTAL 0.3 mg/dL (0.2-1.0); BUN/CREATININE RATIO 17.24 (6.0-28.6); CALCIUM 9.6 mg/dL (8.5-10.1); CARBON DIOXIDE 21 mmol/L (21-32); CHLORIDE 106 mmol/L (98-107); CREATININE, SERUM 1.16 mg/dL (0.55-1.02); GLOMERULAR FILTRATION RATE,EST 58 mL/min (>60); POTASSIUM 3.3 mmol/L (3.5-5.1); PROTEIN, TOTAL 7.2 g/dL (6.4-8.2); UREA NITROGEN 20 mg/dL (7-18)
[2024-07-31] MEDS ORDERED: KETOROLAC TROMETHAMINE 30 MG/ML VIAL IV ONE (22:30)
[2024-07-31 23:00] LABS: BILIRUBIN, URINE NEGATIVE (negative); BLOOD/HGB, URINE NEGATIVE (Negative); KETONE, URINE NEGATIVE (Negative); LEUK ESTERASE, URINE SMALL (negative); NITRITE, URINE NEGATIVE (negative); PH, URINE 7.5 (5-7)
[2024-07-31 23:05] LABS: EPITHELIAL CELLS, URINE SQUAMOUS 1+ /lpf (0-1+); RED BLOOD CELLS, URINE 0-1 /hpf (0-5); WHITE BLOOD CELLS, URINE 21-40 /HPF (0-5)
[2024-07-31 23:06] LABS: BACTERIA, URINE RARE /hpf (negative); CASTS, URINE NONE SEEN \\lpf; COLLECTION TYPE, URINE CLEAN CATCH; CRYSTALS, URINE NONE SEEN (0-1+); REFLEX CULTURE, URINE Yes (No)
[2024-07-31] MEDS ORDERED: MACROBID 100 M100 MG PO (23:30)
[2024-07-31] MEDS ORDERED: PYRIDIUM200 MG PO (23:30)
[2024-07-31] MEDS ORDERED: TRAMADOL HCL 50 MG HOME.PACK PO ONE (23:30)
[2024-07-31] MEDS ORDERED: NITROFURANTOIN MONOHYD MACROCR 100 MG HOME.PACK PO ONE (23:30)
[2024-07-31 23:54] VITALS: BP 104/67
--- NOTE | 2024-08-02 15:48 | EKG ---
[facility] [address] [facility] [place] [address] Signed Normal sinus rhythm Normal ECG When compared with ECG of 16-JUL-2024 20:38, No significant change was found Confirmed by Mejia Jeter DO ([id number]) on 08/02/2024 3:48:45 PM Electronically Signed By: MEJIA JETER DO 08/02/24 1548 PATIENT NAME: MARGUERITE WILKES Electrocardiogram DATE OF : 75 PHYSICIAN: MEJIA JETER DO REPORT #: [id number] REPORT IS CONFIDENTIAL AND NOT TO BE RELEASED WITHOUT AUTHORIZATION
== END 2024-07-31 23:54 | disposition home or self-care (01) ==
LOC: ED 20:05
PROVIDERS: Family Medicine
DX: N39.0 Urinary tract infection, site not specified (principal); I48.91 Unspecified atrial fibrillation; Z88.5 Allergy status to narcotic agent; Z88.2 Allergy status to sulfonamides; Z88.1 Allergy status to other antibiotic agents; Z88.8 Allergy status to other drugs, medicaments and biological substances; Z91.048 Other nonmedicinal substance allergy status; Z79.890 Hormone replacement therapy; Z79.899 Other long term (current) drug therapy
CPT/HCPCS: 36415; 74177; 80053; 81001; 83690; 84484; 85025; 87088; 93005; 93010; 96374; 96375; 99284; A9270; J1885; J2405; J3010; J7030; Q9967

== ENCOUNTER 2024-09-09 05:54 | Day surgery (SDC) | payer BC ==
[2024-08-28 16:32] VITALS: BP 110/77
[2024-09-09] VITALS (7 sets, daily range): BP systolic 90–112; BP diastolic 63–79
[~2024-09-09] VITALS: Ht 165.1 cm; Wt 100.0 kg
[~2024-09-09 05:54] MED LIST changes: +LACTATED RINGER'S 1,000 ML IV SCH; +MACROBID 100 M100 MG PO; +MOUNJARO2.5 MG/0.5 SUB-Q; +PYRIDIUM200 MG PO
[2024-09-09] MEDS ORDERED: LIDOCAINE 1% W/ EPI 1:200,000 30 ML SDV ONE (06:35)
[2024-09-09] MEDS ORDERED: SODIUM CHLORIDE 0.9% 20 ML IV ONE (06:36)
[2024-09-09] MEDS ORDERED: CEFAZOLIN SODIUM 2 GM/20 ML SYR IV SCH (07:00)
[2024-09-09] MEDS ORDERED: IBLOOD GLUCOSE TEST STRIP 1 EA TEST VI PRN ×2 (07:00→08:15)
[2024-09-09] MEDS ORDERED: LIDOCAINE HCL 1% 5 ML SDV INJ ONE (07:00)
[2024-09-09] MEDS ORDERED: BUPIVACAINE 0.75% IN DEXTROSE 2 ML AMP ONE (07:11)
[2024-09-09] MEDS ORDERED: MIDAZOLAM HCL 2 MG/2 ML VIAL ONE (07:11)
[2024-09-09] MEDS ORDERED: ACETAMINOPHEN 1,000 MG/100 ML VIAL ONE (07:23)
[2024-09-09] MEDS ORDERED: LIDOCAINE HCL 2% 5 ML SDV ONE (07:23)
[2024-09-09] MEDS ORDERED: propofoL 200 MG/20 ML VIAL ONE ×2 (07:23→08:27)
[2024-09-09] MEDS ORDERED: DEXAMETHASONE SOD PHOS 4 MG/ML VIAL ONE ×2 (07:23→07:28)
[2024-09-09] MEDS ORDERED: KETAMINE in NS 50 MG/5 ML SYR ONE (07:52)
[2024-09-09] MEDS ORDERED: ondansetron HCL 4 MG/2 ML VIAL ONE (08:11)
[2024-09-09] MEDS ORDERED: ondansetron HCL 4 MG/2 ML VIAL IV PRN ×2 (08:15→09:15)
[2024-09-09] MEDS ORDERED: droPERidol 5 MG/2 ML VIAL IV PRN (08:15)
[2024-09-09] MEDS ORDERED: fentaNYL citrate 50 MCG/ML SDV IV PRN (08:15)
[2024-09-09] MEDS ORDERED: KETOROLAC TROMETHAMINE 30 MG/ML VIAL IV PRN (08:15)
[2024-09-09] MEDS ORDERED: NALOXONE HCL 0.4 MG SYR IV PRN ×2 (08:15→09:15)
[2024-09-09] MEDS ORDERED: ACETAMINOPHEN/CODEINE #3 1 EA TAB PO PRN (09:15)
[2024-09-09] MEDS ORDERED: FAMOTIDINE 20 MG/ 2 ML VIAL IV PRN (09:15)
[2024-09-09] MEDS ORDERED: FAMOTIDINE 20 MG TAB PO PRN (09:15)
[2024-09-09] MEDS ORDERED: SIMETHICONE 80 MG CHEW PO PRN (09:15)
[2024-09-09] MEDS ORDERED: ondansetron HCL 4 MG TAB PO PRN (09:15)
--- NOTE | 2024-09-09 10:07 | NUR ---
09/09/24 Brittanie Arellano 0904 PT ARRIVED IN PACU SLEEPY WITH NO C/O'S. 0915 AT BEDSIDE. 919 C/O FEELING COLD AND ABD PAIN 08/28. 920 MARIAH PAW ON PT. 926 TORADOL 30MG GIVEN IV. 938 FENTANYL 50MCG GIVEN IVP. 944 PAIN DOWN TO 0. 50 PACKING REMOVED. 0955 TO DS VIA STRETCHER. REPORT GIVEN TO RN. FAMILY AT BEDSIDE.
--- NOTE | 2024-09-09 10:19 | NUR ---
0955-PT BACK TO ROOM FROM PACU ON . RECEIVED REPORT FROM SHIRLEY ROWAN. PT IS DROWSY. RESP EVEN AND UNLABORED. RATES PAIN 4/10. DENIES NAUSEA. PT EATING A CRACKER AND TAKING SIPS OF WATER. CALL LIGHT WITHIN REACH. 1009-PAIN MEDICATION GIVEN PER EMAR. NO OTHER NEEDS AT THIS TIME. CALL LIGHT WITHIN REACH. FAMILY IN ROOM.
--- NOTE | 2024-09-09 10:56 | NUR ---
PT LAYING IN BED WITH EYES CLOSED. PT OPENS EYES WITH VERBAL STIMULI. RESP EVEN AND UNLABORED. RATES PAIN 4/10 AND THIS IS TOLERABLE FOR HER AT THIS TIME. DENIES NAUSEA. FAMILY AT BEDSIDE. NO OTHER NEEDS AT THIS TIME. CALL LIGHT WITHIN REACH.
[2024-09-09] MEDS ORDERED: TRAMADOL HCL 50 MG TAB PO ONE (12:15)
--- NOTE | 2024-09-09 12:40 | NUR ---
LE 1143-PT REPORTS CHEST PAIN AND POINTS TO MID TO LOWER STERNUM. DENIES SOB. VSS. LE 1147-PHONE CALL TO DR. MCRAE WITH UPDATE. VO FOR EKG AND MYLICON. LE 1152-MYLICON GIVEN PER EMAR. LE 1154-EKG COMPLETE AND WNL. LE 1201-PT STATES CHEST PAIN IS GETTING BETTER. STATES SURGICAL PAIN IS 6-7/10 AND THE TYLENOL WITH CODIENE HAS NOT HELPED. PT WOULD LIKE SOMETHING ELSE FOR PAIN. LE 1203-PHONE CALL TO DR MCRAE WITH UPDATE. VO FOR TRAMADOL 50MG NOW AND ONE IN 30 MINUTES IF PAIN IS NOT WELL CONTROLLED.
[2024-09-09] MEDS ORDERED: TRAMADOL HCL 50 MG TAB ONE (12:58)
[2024-09-09] MEDS ORDERED: SIMETHICONE 80 MG CHEW PO SCH (13:00)
--- NOTE | 2024-09-09 13:16 | EKG ---
[facility] [address] [facility] [place] [address] Signed Normal sinus rhythm Normal ECG When compared with ECG of 31-JUL-2024 20:51, No significant change was found Confirmed by Zena Jennings MD ([id number]) on 09/09/2024 1:16:15 PM Electronically Signed By: ZENA JENNINGS MD 09/09/24 1316 PATIENT NAME: MARGUERITE WILKES Electrocardiogram DATE OF : 75 PHYSICIAN: ZENA JENNINGS MD REPORT #: [id number] REPORT IS CONFIDENTIAL AND NOT TO BE RELEASED WITHOUT AUTHORIZATION
--- NOTE | 2024-09-09 13:18 | NUR ---
LE 1224-PAIN MEDICATION GIVEN PER EMAR. PT STATES CHEST PAIN COMES AND GOES BUT IS BETTER. HOT PACK PLACED ON ABDOMEN. NO OTHER NEEDS AT THIS TIME. CALL LIGHT WITHIN REACH. MOM AT BEDSIDE.
--- NOTE | 2024-09-09 13:20 | NUR ---
LE 1300-PT STATES PAIN IS STILL 7/10. ONLY FEELS TIRED AFTER TAKING 1ST PILL. PAIN MEDICATION GIVEN PER EMAR. LE 1303-PT IS DROWSY. RESP EVEN AND UNLABORED. STATES CHEST PAIN IS BETTER. DENIES NAUSEA. ANOTHER HOT PACK PLACED ON ABDOMEN. PT HAS WATER AND CRACKERS AT BEDSIDE. NO OTHER NEEDS AT THIS TIME. CALL LIGHT WITHIN REACH.
--- NOTE | 2024-09-09 16:43 | NUR ---
LE 1340-PT SITTING AT BEDSIDE. PT AMBUALTES TO RESTROOM. GAIT STEADY AND TOLERATED WELL. PT UNABLE TO VOID. LE 1345-PT BACK TO BED. LE 1348-BLADDER SCAN COMPLETE. 514ML NOTED IN BLADDER. CALL LIGHT WITHIN REACH. LE 1355-PT RATES PAIN 5/10. DENIES NAUSEA. DENIES CHEST PAIN. NO OHTER NEEDS AT THIS TIME. CALL LIGHT WITHIN REACH.. LE 1356-PHONE CALL TO DR. MCRAE WITH AN UPDATE. DR. MCRAE WOULD LIKE PT TO TRY AGAIN IN AN HOUR AND CALL HER BACK.
--- NOTE | 2024-09-09 16:47 | NUR ---
LE 1430-PT UP TO WALK. GAIT STEADY AND TOLERATED WELL. LE 1435-PT AMBULATES TO RESTROOM. PT VOIDS 150ML OF RED URINE. LE 1440-PT BACK TO BED. PT WOULD LIKE TO GO HOME. WILL CALL DR. MCRAE. LE 1449-PHONE CALL TO DR. MCRAE [facility] AN UPDATE. PT CAN BE DISCHARGED HOME. LE 1456-PT GETTING DRESSED. MOM IN ROOM WITH PT.
--- NOTE | 2024-09-09 16:50 | NUR ---
5386-PROVIDED PT WITH DISCHARGE INFORMATION. WENT OVER POSTOP MEDICATIONS. ALL QUESTIONS ANSWERED. PT RATES PAIN 4/10 AND THIS IS TOLERABLE FOR HER. PT LEAVES DAY SURGERY VIA WHEELCHAIR. MOM WAITING AT THE FRONT OF HOSPITAL WITH THE CAR.
== END 2024-09-09 15:05 | disposition home or self-care (01) ==
LOC: DS 05:54 → OPS 05:54 → DS 07:30 → OPS 15:05
PROVIDERS: ATTEND Obstetrics & Gynecology
PROC: 0TSD0ZZ Reposition Urethra, Open Approach (ICD-10-PCS; 2024-09-09)
PROC: 0JQC0ZZ Repair Pelvic Region Subcutaneous Tissue and Fascia, Open Approach (ICD-10-PCS; principal; 2024-09-09 07:30)
PROC: 0JQC0ZZ Repair Pelvic Region Subcutaneous Tissue and Fascia, Open Approach (ICD-10-PCS; 2024-09-09 07:30)
DX: N81.10 Cystocele, unspecified (principal); N81.6 Rectocele; N39.3 Stress incontinence (female) (male); N36.41 Hypermobility of urethra; J45.20 Mild intermittent asthma, uncomplicated; I45.6 Pre-excitation syndrome; E03.9 Hypothyroidism, unspecified; E78.5 Hyperlipidemia, unspecified; Z79.899 Other long term (current) drug therapy; Z79.890 Hormone replacement therapy; Z88.2 Allergy status to sulfonamides; Z88.8 Allergy status to other drugs, medicaments and biological substances
CPT/HCPCS: 00942; 93005; 93010; A9270; C1771; J0131; J0690; J1100; J1885; J2003; J2250; J2405; J2704; J3010; J3490; J7121